=== PATIENT | male | born 1970 | race Caucasian/White ===

== ENCOUNTER 2024-01-02 08:32 | Day surgery (SDC) | payer OTHER ==
[~2024-01-02] VITALS: Ht 175.3 cm; Wt 84.8 kg
[~2024-01-02 08:32] MED LIST: ALBUTEROL SULFATE 2.5MG/0.5ML INH NEB SOLN INH PRN; LR 1,000 ML IV SCH; SUMA25TA3 PO; TRAM50TA2 PO; VENTAER INH
[2024-01-02] MEDS ORDERED: fentaNYL 100 MCG/2 ML INJECTION As Ordered ONE (09:15)
[2024-01-02] MEDS ORDERED: SUGAMMADEX SODIUM 500 MG/5 ML VIAL (BRIDION) As Ordered ONE (09:16)
[2024-01-02] MEDS ORDERED: ROCURONIUM BROMIDE 50MG/5ML VIAL As Ordered ONE (09:16)
[2024-01-02] MEDS ORDERED: propofoL 200 MG/20 ML VIAL As Ordered ONE (09:16)
[2024-01-02] MEDS ORDERED: MIDAZOLAM INJ 2MG/2ML VIAL As Ordered ONE (09:16)
[2024-01-02] MEDS ORDERED: LIDOCAINE 2% 100MG/5ML SDV (FOR ANES.) As Ordered ONE (09:19)
[2024-01-02] MEDS ORDERED: ONDANSETRON 4MG 2ML VIAL As Ordered ONE (09:21)
[2024-01-02] MEDS ORDERED: dexmedeTOMIDine (4MCG/ML)200MCG/50ML BTL (PRECEDEX) As Ordered ONE (09:59)
[2024-01-02] MEDS: ceFAZolin SOD 2 GM in IV 1 EA IV ONE (10:13)
[2024-01-02] MEDS ORDERED: METOCLOPRAMIDE INJ 10MG/2ML VIAL IV PRN (10:40)
[2024-01-02] MEDS ORDERED: fentaNYL 100 MCG/2 ML INJECTION IV PRN (10:40)
[2024-01-02] MEDS ORDERED: oxyCODONE 5MG TAB PO PRN (10:40)
[2024-01-02] MEDS ORDERED: LR 1,000 ML IV SCH (10:40)
[2024-01-02] MEDS ORDERED: PERCOCET 5MG/325MG TAB PO PRN ×3 (10:40→13:40)
[2024-01-02] MEDS ORDERED: diphenhydrAMINE 50MG/ML VIAL IV PRN (10:40)
[2024-01-02] MEDS ORDERED: ONDANSETRON 4MG 2ML VIAL IV PRN (10:40)
[2024-01-02] MEDS ORDERED: HYDROMORPHONE HCL 0.5 MG/ 0.5 ML SYRINGE IV PRN (10:40)
[2024-01-02] MEDS ORDERED: MEPERIDINE 25 MG/ML 1ML VIAL IV PRN (10:40)
[2024-01-02 12:21] VITALS: BP 134/94; TEMP 96.5; O2SAT 100
[2024-01-02] MEDS ORDERED: NS 1,000 ML IV SCH (13:40)
== END 2024-01-02 12:25 | disposition home or self-care (01) ==
LOC: M SDC 08:32
PROVIDERS: ATTEND Surgery
DX: K42.9 Umbilical hernia without obstruction or gangrene (principal); Z72.0 Tobacco use; Z79.51 Long term (current) use of inhaled steroids; Z88.6 Allergy status to analgesic agent; Z91.018 Allergy to other foods
CPT/HCPCS: 49591; 88302; C9290; J0665; J0690; J1100; J2250; J2405; J3010